=== PATIENT | male | born 1960 | race American Indian/Alaskan Native ===

== ENCOUNTER 2018-11-10 17:09 | Emergency (ER) | payer SELFPAY ==
[2018-11-10] MEDS ORDERED: NACL 0.9% 1000 ML 1,000 ML IV ONE (17:43)
[2018-11-10] MEDS ORDERED: ZOFRAN IV ONE (17:43)
--- NOTE | 2018-11-10 17:49 | Emergency Department Report ---
ED N/V/D HPI - General Chief complaint: Nausea/Vomiting/Diarrhea Stated complaint: NAUSEA/VOMITING Time Seen by Provider: 11/10/18 17:40 Source: patient, EMS Mode of arrival: Stretcher Limitations: No Limitations - History of Present Illness Initial comments: Patient is a 58-year-old male with history of hypertension. Patient brought to the emergency room complaining of nausea and vomiting started this morning. Patient denied any abdominal pain, chest pain, shortness of breath, fever, chills or diarrhea. Patient stated that he ate taco for dinner last night. MD complaint: nausea, vomiting -: This morning Description of Vomiting: food contents Associated Abdominal Pain: No - Related Data Previous Rx's Medication Instructions Recorded Last Taken Type Amoxicillin [Amoxicillin TAB] 875 mg PO BID #14 tablet 11/26/13 Unknown Rx Sulfamethoxazole/Trimethoprim 1 each PO BID #14 tablet 11/26/13 Unknown Rx [Bactrim Ds] HYDROcodone/APAP 10-325 [[place] 1 each PO Q4-6H PRN #16 tablet 06/02/15 Unknown Rx 10/325] predniSONE [Deltasone] 20 mg PO TID #9 tab 06/02/15 Unknown Rx Acetaminophen/Codeine [Tylenol #3] 1 tab PO Q6H PRN #20 tab 08/06/15 Unknown Rx Clindamycin [Clindamycin CAP] 300 mg PO QID #40 cap 08/06/15 Unknown Rx Lisinopril/Hydrochlorothiazide 1 tab PO QDAY #30 tab 08/06/15 Unknown Rx [Zestoretic 20-25 mg] Ibuprofen [Motrin 600 MG tab] 600 mg PO Q8H PRN #30 tablet 08/27/16 Unknown Rx Penicillin Vk [Veetids TAB] 500 mg PO QID #56 tablet 08/27/16 Unknown Rx amLODIPine [Norvasc] 5 mg PO DAILY #30 tab 08/27/16 Unknown Rx Allergies Allergy/AdvReac Type Severity Reaction Status Date / Time No Known Allergies Allergy Verified 11/11/13 04:15 ED Review of Systems ROS: Stated complaint: NAUSEA/VOMITING Other details as noted in HPI Comment: All other systems reviewed and negative Constitutional: denies: chills, fever Respiratory: denies: cough, orthopnea, shortness of breath, SOB with exertion Cardiovascular: denies: chest pain, palpitations, dyspnea on exertion Gastrointestinal: nausea, vomiting. denies: abdominal pain, diarrhea, constipation, hematemesis, melena, hematochezia Neurological: denies: headache, weakness, numbness, paresthesias, confusion, abnormal gait ED Past Medical Hx - Past Medical History Hx Hypertension: Yes (on blood pressure medication many years ago) Additional medical history: ETOH abuse - Social History Smoking Status: Current Every Day Smoker Substance Use Type: Alcohol - Medications Home Medications: Home Medications Medication Instructions Recorded Confirmed Last Taken Type Amoxicillin [Amoxicillin TAB] 875 mg PO BID #14 tablet 11/26/13 Unknown Rx Sulfamethoxazole/Trimethoprim 1 each PO BID #14 tablet 11/26/13 Unknown Rx [Bactrim Ds] HYDROcodone/APAP 10-325 [[place] 1 each PO Q4-6H PRN #16 tablet 06/02/15 Unknown Rx 10/325] predniSONE [Deltasone] 20 mg PO TID #9 tab 06/02/15 Unknown Rx Acetaminophen/Codeine [Tylenol #3] 1 tab PO Q6H PRN #20 tab 08/06/15 Unknown Rx Clindamycin [Clindamycin CAP] 300 mg PO QID #40 cap 08/06/15 Unknown Rx Lisinopril/Hydrochlorothiazide 1 tab PO QDAY #30 tab 08/06/15 Unknown Rx [Zestoretic 20-25 mg] Ibuprofen [Motrin 600 MG tab] 600 mg PO Q8H PRN #30 tablet 08/27/16 Unknown Rx Penicillin Vk [Veetids TAB] 500 mg PO QID #56 tablet 08/27/16 Unknown Rx amLODIPine [Norvasc] 5 mg PO DAILY #30 tab 08/27/16 Unknown Rx ED Physical Exam - General Limitations: No Limitations General appearance: alert, in no apparent distress - Head Head exam: Present: atraumatic, normocephalic, normal inspection - Eye Eye exam: Present: normal appearance, PERRL - ENT ENT exam: Present: normal exam, normal orophraynx, mucous membranes moist - Neck Neck exam: Present: normal inspection, full ROM. Absent: tenderness, meningismus, lymphadenopathy, thyromegaly - Respiratory Respiratory exam: Present: normal lung sounds bilaterally - Cardiovascular Cardiovascular Exam: Present: regular rate, normal rhythm, normal heart sounds - GI/Abdominal GI/Abdominal exam: Present: soft, normal bowel sounds. Absent: distended, tenderness, guarding, rebound, rigid, organomegaly, mass, bruit, pulsatile mass, hernia - Extremities Exam Extremities exam: Present: normal inspection, full ROM, normal capillary refill. Absent: pedal edema, calf tenderness - Back Exam Back exam: Present: normal inspection, full ROM. Absent: tenderness, CVA tenderness (R), CVA tenderness (L), muscle spasm, paraspinal tenderness, vertebral tenderness - Neurological Exam Neurological exam: Present: alert, oriented X3, CN II-XII intact, normal gait, reflexes normal. Absent: motor sensory deficit - Skin Skin exam: Present: warm, intact, normal color ED Course Vital Signs 11/10/18 11/10/18 11/10/18 17:28 17:30 17:45 Pulse Rate 79 84 80 Respiratory 18 15 Rate Blood Pressure 121/84 125/79 O2 Sat by Pulse Oximetry 11/10/18 11/10/18 11/10/18 18:00 18:15 18:30 Pulse Rate 79 76 75 Respiratory 13 13 17 Rate Blood Pressure 125/79 131/81 131/81 O2 Sat by Pulse Oximetry 11/10/18 11/10/18 11/10/18 18:45 19:59 20:00 Pulse Rate 74 78 83 Respiratory 14 10 L 12 Rate Blood Pressure 136/81 136/81 136/81 O2 Sat by Pulse 95 96 94 Oximetry ED Medical Decision Making - Lab Data Result diagrams: 11/10/18 17:50 11/10/18 17:50 - Radiology Data Radiology results: report reviewed Abdominal series x-ray is unremarkable. - Medical Decision Making Patient is a 58-year-old male with history of hypertension. Patient brought to the emergency room complaining of nausea and vomiting started this morning. Patient denied any abdominal pain, chest pain, shortness of breath, fever, chills or diarrhea. Patient stated that he ate taco for dinner last night Patient stated that he is feeling much better. Labs reviewed that is unremarkable. I advised the patient to follow up with his primary care physician in the next 2-3 days and to return to the ER if symptoms are not improved. Critical care attestation.: If time is entered above; I have spent that time in minutes in the direct care of this critically ill patient, excluding procedure time. ED Disposition Clinical Impression: Nausea and vomiting Disposition: DC-01 TO HOME OR SELFCARE Is pt being admited?: No Condition: Stable Instructions: Acute Nausea and Vomiting (ED) Referrals: PRIMARY CARE, [Primary Care Provider] - 3-5 Days
[2018-11-10 18:14] LABS: Basophils # (Auto) 0.1 K/mm3 (0.0-0.1); Basophils % (Auto) 0.8 % (0.0-1.8); Hematocrit 35.5 % (35.5-45.6); Hemoglobin 11.9 gm/dl (11.8-15.2); Lymphocytes # (Auto) 0.5 K/mm3 (1.2-5.4); Lymphocytes % (Auto) 6.2 % (13.4-35.0); Mean Corpuscular HGB Conc 34 % (32-34); Mean Corpuscular Volume 100 fl (84-94); Monocytes # (Auto) 0.4 K/mm3 (0.0-0.8); Monocytes % (Auto) 4.1 % (0.0-7.3); Platelet Count 204 K/mm3 (140-440); Red Blood Count 3.56 M/mm3 (3.65-5.03); Red Cell Distribution Width 15.4 % (13.2-15.2)
[2018-11-10 18:34] LABS: BUN/Creatinine Ratio 11; Bilirubin,Direct 0.4 mg/dL (0-0.2); Blood Urea Nitrogen 8 mg/dL (9-20); Calcium 8.7 mg/dL (8.4-10.2)
[2018-11-10 18:35] LABS: Alanine Aminotransferase 38 units/L (7-56); Albumin 4.2 g/dL (3.9-5); Hemolysis Index 1
[2018-11-10] MEDS ORDERED: SUBLIMAZE IV ONE (19:06)
[2018-11-10] MEDS ORDERED: SUBLIMAZE ONE (19:14)
[2018-11-10 19:51] LABS: Bilirubin,Urine NEG (Negative); Blood,Urine SM (Negative); Color,Urine Yellow (Yellow); Hyaline Casts,Urine 1 /LPF; Mucus,Urine FEW /HPF; Urobilinogen,Urine < 2.0 mg/dL (<2.0); WBC,Urine < 1.0 /HPF (0.0-6.0)
[2018-11-10 20:07] VITALS: BP 136/81
--- NOTE | 2018-11-10 21:51 | XRay Report ---
PROCEDURE: XR ABD SERIES W CXR 1V TECHNIQUE: Abdominal series complete, including supine and upright AP views of the abdomen and front al chest. HISTORY: abdominal pain COMPARISONS: None . FINDINGS: Heart: Normal. Mediastinum/Vessels: Normal. Lungs/Pleural space: Normal. Bowel gas pattern: Nonobstructive . Masses or calcifications: None . Bony structures: No acute osseous abnormality . Other: No free intraperitoneal air . IMPRESSION: No acute abnormality. This document is electronically signed by Obed Randolph MD., Nov 10 2018 09:49:36 PM ET
== END 2018-11-10 21:38 | disposition home or self-care (01) ==
LOC: ED 17:09
DX: R11.2 Nausea with vomiting, unspecified (principal); I10 Essential (primary) hypertension; F17.200 Nicotine dependence, unspecified, uncomplicated
CPT/HCPCS: 36415; 74022; 80048; 80076; 81001; 83690; 84484; 85025; 93005; 93010; 96361; 96374; 99284; G0480; J2405; J3010; J7030; 80320

== ENCOUNTER 2018-11-16 06:35 | Emergency (ER) | payer OTHER ==
[2018-11-16 06:45] VITALS: BP 157/103
--- NOTE | 2018-11-16 08:43 | Emergency Department Report ---
ED Lower Extremity HPI - General Chief Complaint: Extremity Problem,Nontraumatic Stated Complaint: POSS BUG BITE TO L FOOT/PAIN Time Seen by Provider: 11/16/18 08:26 Source: patient Mode of arrival: Ambulatory Limitations: No Limitations - History of Present Illness Initial Comments: 58-year-old male with a past medical history of hypertension and alcohol abuse presents to hospital complains of intermittent left second toe pain the past 2 days. Patient states he is having intermittent pain and "jumping" of his second toe and occasionally his second and third toe of his left foot. He assumed he was bitten by an insect but denies bite wound. He also denies trauma or fall. No fever or drainage reported. - Related Data Previous Rx's Medication Instructions Recorded Last Taken Type Amoxicillin [Amoxicillin TAB] 875 mg PO BID #14 tablet 11/26/13 Unknown Rx Sulfamethoxazole/Trimethoprim 1 each PO BID #14 tablet 11/26/13 Unknown Rx [Bactrim Ds] HYDROcodone/APAP 10-325 [[place] 1 each PO Q4-6H PRN #16 tablet 06/02/15 Unknown Rx 10/325] predniSONE [Deltasone] 20 mg PO TID #9 tab 06/02/15 Unknown Rx Acetaminophen/Codeine [Tylenol #3] 1 tab PO Q6H PRN #20 tab 08/06/15 Unknown Rx Clindamycin [Clindamycin CAP] 300 mg PO QID #40 cap 08/06/15 Unknown Rx Lisinopril/Hydrochlorothiazide 1 tab PO QDAY #30 tab 08/06/15 Unknown Rx [Zestoretic 20-25 mg] Ibuprofen [Motrin 600 MG tab] 600 mg PO Q8H PRN #30 tablet 08/27/16 Unknown Rx Penicillin Vk [Veetids TAB] 500 mg PO QID #56 tablet 08/27/16 Unknown Rx amLODIPine [Norvasc] 5 mg PO DAILY #30 tab 08/27/16 Unknown Rx Esomeprazole Magnesium [NexIUM] 40 mg PO QDAY #30 nicole. 11/10/18 Unknown Rx Ondansetron [Zofran Odt] 4 mg PO Q8HR PRN #14 tab.rapdis 11/10/18 Unknown Rx Ibuprofen [Motrin] 800 mg PO Q8HR PRN #30 tablet 11/16/18 Unknown Rx Allergies Allergy/AdvReac Type Severity Reaction Status Date / Time No Known Allergies Allergy Verified 11/11/13 04:15 ED Review of Systems ROS: Stated complaint: POSS BUG BITE TO L FOOT/PAIN Other details as noted in HPI Comment: All other systems reviewed and negative ED Past Medical Hx - Past Medical History Previous Medical History?: Yes Hx Hypertension: Yes (on blood pressure medication many years ago) Additional medical history: ETOH abuse - Surgical History Past Surgical History?: No - Social History Smoking Status: Unknown if ever smoked Substance Use Type: Alcohol - Medications Home Medications: Home Medications Medication Instructions Recorded Confirmed Last Taken Type Amoxicillin [Amoxicillin TAB] 875 mg PO BID #14 tablet 11/26/13 Unknown Rx Sulfamethoxazole/Trimethoprim 1 each PO BID #14 tablet 11/26/13 Unknown Rx [Bactrim Ds] HYDROcodone/APAP 10-325 [[place] 1 each PO Q4-6H PRN #16 tablet 06/02/15 Unknown Rx 10/325] predniSONE [Deltasone] 20 mg PO TID #9 tab 06/02/15 Unknown Rx Acetaminophen/Codeine [Tylenol #3] 1 tab PO Q6H PRN #20 tab 08/06/15 Unknown Rx Clindamycin [Clindamycin CAP] 300 mg PO QID #40 cap 08/06/15 Unknown Rx Lisinopril/Hydrochlorothiazide 1 tab PO QDAY #30 tab 08/06/15 Unknown Rx [Zestoretic 20-25 mg] Ibuprofen [Motrin 600 MG tab] 600 mg PO Q8H PRN #30 tablet 08/27/16 Unknown Rx Penicillin Vk [Veetids TAB] 500 mg PO QID #56 tablet 08/27/16 Unknown Rx amLODIPine [Norvasc] 5 mg PO DAILY #30 tab 08/27/16 Unknown Rx Esomeprazole Magnesium [NexIUM] 40 mg PO QDAY #30 capsule.dr 11/10/18 Unknown Rx Ondansetron [Zofran Odt] 4 mg PO Q8HR PRN #14 tab.rapdis 11/10/18 Unknown Rx Ibuprofen [Motrin] 800 mg PO Q8HR PRN #30 tablet 11/16/18 Unknown Rx ED Physical Exam - General Limitations: No Limitations - Other Other exam information: General: No limitations, patient is alert in no acute distress Head exam: Atraumatic, normocephalic Eyes exam: Normal appearance ENT: Moist mucous membrane, normal oropharynx Neck exam: Normal inspection Respiratory exam: Clear to auscultation bilateral, no wheezes, rales, crackles Cardiovascular: Normal rate and rhythm, normal heart sounds Abdomen: Soft, nondistended, and nontender, with normal bowel sounds, no rebound, or guarding Extremity: Full range of motion normal inspection no deformity. Minimum tenderness to the medial side of the left second toe nailbed. No swelling, warmth, erythema, bite lynch. No muscle spasms noted at this time Back: Normal Inspection, full range of motion, no tenderness Neurologic: Alert, oriented x3, cranial nerves intact, no motor or sensory deficit Psychiatric: normal affect, normal mood Skin: Warm, dry, intact ED Course Vital Signs 11/16/18 06:43 Temperature 98.1 F Pulse Rate 78 Respiratory 18 Rate Blood Pressure 157/103 O2 Sat by Pulse 100 Oximetry ED Lower Extremity MDM - Medical Decision Making No acute injury or abnormality noted to the toe Since patient does have some mild pain at the nailbed referred to podiatry for possible early ingrown toenail Follow-up advised - Differential Diagnosis cellulitis, paronychia, contusion, sprain, spasm, paronychia, ingrown toena Critical Care Time: No Critical care attestation.: If time is entered above; I have spent that time in minutes in the direct care of this critically ill patient, excluding procedure time. ED Disposition Clinical Impression: Toe pain, left Disposition: DC-01 TO HOME OR SELFCARE Is pt being admited?: No Does the pt Need Aspirin: No Condition: Stable Instructions: Arthralgia (ED) Additional Instructions: Take the medication as prescribed. Follow up with your doctor or the clinic/doctor provided. Return if symptoms worsen as indicated by your discharge instructions Prescriptions: Ibuprofen [Motrin] 800 mg PO Q8HR PRN #30 tablet PRN Reason: Pain , Severe (7-10) Referrals: HARI HUDDLESTON DPM [Staff Physician] - 3-5 Days [facility] [Provider Group] - 3-5 Days Time of Disposition: 08:43
== END 2018-11-16 09:13 | disposition home or self-care (01) ==
LOC: ED 06:35
DX: M79.675 Pain in left toe(s) (principal); I10 Essential (primary) hypertension
CPT/HCPCS: 99282

== ENCOUNTER 2019-10-13 13:28 | Emergency (ER) | payer SELFPAY ==
[2019-10-13] MEDS ORDERED: SODIUM CHLORIDE 0.9% 1000 ML 1,000 ML IV ONE (14:35)
[2019-10-13] MEDS ORDERED: PANTOPRAZOLE 40 MG INJ IV ONE (14:36)
[2019-10-13] MEDS ORDERED: ONDANSETRON 4 MG/2 ML INJ IV ONE (14:36)
--- NOTE | 2019-10-13 14:43 | Emergency Department Report ---
ED GI Bleed HPI - General Chief complaint: GI Bleed Stated complaint: BLACK STOOL/THROAT PAIN/NAUSEA Time Seen by Provider: 10/13/19 14:25 Source: patient Mode of arrival: Ambulatory Limitations: No Limitations - History of Present Illness Initial comments: Mr. Martinez is a 59-year-old male with history of hypertension and alcohol use who presents with poor appetite stomach upset dark stools and vomiting for 3 days. He had black stools recently. Now he has bright red blood per rectum. Has not had a bowel movement in 3 days. Denies discrete pain. Just does not have an appetite. He drinks 40 ounces of beer every other day. No history of GI bleed or liver disease MD complaint: blood on toilet paper, other (Dark stool) -: Gradual, days(s) (3) Severity scale (0 -10): 0 Quality: painless Consistency: constant Improves with: none Worsens with: none Associated Symptoms: denies other symptoms - Related Data Previous Rx's Medication Instructions Recorded Last Taken Type Amoxicillin [Amoxicillin TAB] 875 mg PO BID #14 tablet 11/26/13 Unknown Rx Sulfamethoxazole/Trimethoprim 1 each PO BID #14 tablet 11/26/13 Unknown Rx [Bactrim Ds] HYDROcodone/APAP 10-325 [[place] 1 each PO Q4-6H PRN #16 tablet 06/02/15 Unknown Rx 10/325] predniSONE [Deltasone] 20 mg PO TID #9 tab 06/02/15 Unknown Rx Acetaminophen/Codeine [Tylenol #3] 1 tab PO Q6H PRN #20 tab 08/06/15 Unknown Rx Clindamycin [Clindamycin CAP] 300 mg PO QID #40 cap 08/06/15 Unknown Rx Lisinopril/Hydrochlorothiazide 1 tab PO QDAY #30 tab 08/06/15 Unknown Rx [Zestoretic 20-25 mg] Ibuprofen [Motrin 600 MG tab] 600 mg PO Q8H PRN #30 tablet 08/27/16 Unknown Rx Penicillin Vk [Veetids TAB] 500 mg PO QID #56 tablet 08/27/16 Unknown Rx amLODIPine 5 mg PO DAILY #30 tab 08/27/16 Unknown Rx Esomeprazole Magnesium [NexIUM] 40 mg PO QDAY #30 nicole. 11/10/18 Unknown Rx Ondansetron [Zofran Odt] 4 mg PO Q8HR PRN #14 tab.rapdis 11/10/18 Unknown Rx Ibuprofen [Motrin] 800 mg PO Q8HR PRN #30 tablet 11/16/18 Unknown Rx Ciprofloxacin HCl [Ciprofloxacin 500 mg PO Q12HR 7 Days #14 tab 10/13/19 Unknown Rx TAB] Famotidine [Pepcid] 20 mg PO BID 30 Days #60 tablet 10/13/19 Unknown Rx Promethazine [Phenergan] 25 mg PO Q6HR PRN #10 tab 10/13/19 Unknown Rx metroNIDAZOLE [Flagyl] 500 mg PO Q12HR 7 Days #14 tab 10/13/19 Unknown Rx Allergies Allergy/AdvReac Type Severity Reaction Status Date / Time No Known Allergies Allergy Verified 11/11/13 04:15 ED Review of Systems ROS: Stated complaint: BLACK STOOL/THROAT PAIN/NAUSEA Other details as noted in HPI Comment: All other systems reviewed and negative Constitutional: denies: fever, malaise Respiratory: denies: cough Cardiovascular: denies: chest pain Gastrointestinal: hematochezia. denies: hematemesis ED Past Medical Hx - Past Medical History Previous Medical History?: Yes Hx Hypertension: Yes (on blood pressure medication many years ago) Additional medical history: ETOH abuse - Social History Smoking Status: Current Every Day Smoker Substance Use Type: Alcohol, Marijuana - Medications Home Medications: Home Medications Medication Instructions Recorded Confirmed Last Taken Type Amoxicillin [Amoxicillin TAB] 875 mg PO BID #14 tablet 11/26/13 Unknown Rx Sulfamethoxazole/Trimethoprim 1 each PO BID #14 tablet 11/26/13 Unknown Rx [Bactrim Ds] HYDROcodone/APAP 10-325 [[place] 1 each PO Q4-6H PRN #16 tablet 06/02/15 Unknown Rx 10/325] predniSONE [Deltasone] 20 mg PO TID #9 tab 06/02/15 Unknown Rx Acetaminophen/Codeine [Tylenol #3] 1 tab PO Q6H PRN #20 tab 08/06/15 Unknown Rx Clindamycin [Clindamycin CAP] 300 mg PO QID #40 cap 08/06/15 Unknown Rx Lisinopril/Hydrochlorothiazide 1 tab PO QDAY #30 tab 08/06/15 Unknown Rx [Zestoretic 20-25 mg] Ibuprofen [Motrin 600 MG tab] 600 mg PO Q8H PRN #30 tablet 08/27/16 Unknown Rx Penicillin Vk [Veetids TAB] 500 mg PO QID #56 tablet 08/27/16 Unknown Rx amLODIPine 5 mg PO DAILY #30 tab 08/27/16 Unknown Rx Esomeprazole Magnesium [NexIUM] 40 mg PO QDAY #30 capsule. 11/10/18 Unknown Rx Ondansetron [Zofran Odt] 4 mg PO Q8HR PRN #14 tab.rapdis 11/10/18 Unknown Rx Ibuprofen [Motrin] 800 mg PO Q8HR PRN #30 tablet 11/16/18 Unknown Rx Ciprofloxacin HCl [Ciprofloxacin 500 mg PO Q12HR 7 Days #14 tab 10/13/19 Unknown Rx TAB] Famotidine [Pepcid] 20 mg PO BID 30 Days #60 tablet 10/13/19 Unknown Rx Promethazine [Phenergan] 25 mg PO Q6HR PRN #10 tab 10/13/19 Unknown Rx metroNIDAZOLE [Flagyl] 500 mg PO Q12HR 7 Days #14 tab 10/13/19 Unknown Rx ED Physical Exam - General Limitations: No Limitations General appearance: alert, in no apparent distress, other (Lucid and insightful aware odor of alcohol on breath) - Head Head exam: Present: atraumatic, normocephalic - Eye Eye exam: Present: normal appearance - ENT ENT exam: Present: mucous membranes moist - Neck Neck exam: Present: normal inspection, full ROM - Respiratory Respiratory exam: Present: normal lung sounds bilaterally. Absent: respiratory distress, wheezes, rales, rhonchi - Cardiovascular Cardiovascular Exam: Present: regular rate, normal rhythm, normal heart sounds. Absent: systolic murmur, diastolic murmur, rubs, gallop - GI/Abdominal GI/Abdominal exam: Present: soft. Absent: distended, tenderness, guarding, rebound - Rectal Rectal exam: Present: heme (+) stool, hemorrhoids, other (Gross blood on rectal exam) - Extremities Exam Extremities exam: Present: normal inspection - Neurological Exam Neurological exam: Present: alert, oriented X3 - Psychiatric Psychiatric exam: Present: normal affect, normal mood - Skin Skin exam: Present: warm, dry, intact, normal color. Absent: rash ED Course Vital Signs 10/13/19 13:47 Temperature 98.3 F Pulse Rate 92 H Respiratory 14 Rate Blood Pressure 175/94 [Right] O2 Sat by Pulse 99 Oximetry ED Medical Decision Making - Lab Data Result diagrams: 10/13/19 14:49 Laboratory Results - last 24 hr 10/13/19 10/13/19 10/13/19 14:49 14:49 14:49 WBC 7.1 RBC 3.74 Hgb 11.7 L Hct 34.7 L MCV 93 MCH 31 MCHC 34 RDW 16.6 H Plt Count 233 Lymph % (Auto) 12.2 L [place] % (Auto) 7.5 H Eos % (Auto) 0.1 Baso % (Auto) 1.1 Lymph # 0.9 L [place] # 0.5 Eos # 0.0 Baso # 0.1 Seg Neutrophils % 79.1 H Seg Neutrophils # 5.6 PT 13.8 INR 1.05 Total Bilirubin 0.80 Direct Bilirubin < 0.2 Indirect Bilirubin 0.6 AST 94 H ALT 33 Alkaline Phosphatase 174 H Total Protein 8.6 H Albumin 4.7 Albumin/Globulin Ratio 1.2 Lipase 10/13/19 14:49 WBC RBC Hgb Hct MCV MCH MCHC RDW Plt Count Lymph % (Auto) [place] % (Auto) Eos % (Auto) Baso % (Auto) Lymph # [place] # Eos # Baso # Seg Neutrophils % Seg Neutrophils # PT INR Total Bilirubin Direct Bilirubin Indirect Bilirubin AST ALT Alkaline Phosphatase Total Protein Albumin Albumin/Globulin Ratio Lipase 16 - Radiology Data Radiology results: report reviewed CT abdomen pelvis: Enlarged prostate that indents the bladder base, hepatic steatosis, diverticulosis with diffuse fatty infiltration - Medical Decision Making 1. GI bleed: Suspect rectal bleeding. Gross blood on exam. Hemoglobin hematocrit unchanged since October 2018, considering diverticulosis finding did prescribe antibiotics ciprofloxacin and Flagyl 2. Poor appetite vomiting: Peptic ulcer disease versus alcoholic gastritis CT abdomen pelvis obtained to rule out acute inflammatory process such as pancreatitis prescribed famotidine and promethazine 3. Enlarged prostate seen on CT scan and palpated on rectal exam strongly encourage prostate cancer screening Patient understands to return if symptoms progress such as continued bleeding lightheadedness dizziness Referred to outpatient medicine physician Critical care attestation.: If time is entered above; I have spent that time in minutes in the direct care of this critically ill patient, excluding procedure time. ED Disposition Clinical Impression: Rectal bleeding, Alcoholic liver disease, Diverticulosis Disposition: - TO HOME OR SELFCARE Is pt being admited?: No Does the pt Need Aspirin: No Condition: Stable Instructions: Rectal Bleeding (ED), Diverticulosis (ED), Cirrhosis (ED) Prescriptions: Ciprofloxacin HCl [Ciprofloxacin TAB] 500 mg PO Q12HR 7 Days #14 tab metroNIDAZOLE [Flagyl] 500 mg PO Q12HR 7 Days #14 tab Famotidine [Pepcid] 20 mg PO BID 30 Days #60 tablet Promethazine [Phenergan] 25 mg PO Q6HR PRN #10 tab PRN Reason: Nausea Referrals: CHLOÉ SHAW MD [Staff Physician] - 3-5 Days
[2019-10-13 15:02] LABS: Basophils # (Auto) 0.1 K/mm3 (0.0-0.1); Basophils % (Auto) 1.1 % (0.0-1.8); Eosinophils % (Auto) 0.1 % (0.0-4.3); Hematocrit 34.7 % (35.5-45.6); Hemoglobin 11.7 gm/dl (11.8-15.2); Lymphocytes # (Auto) 0.9 K/mm3 (1.2-5.4); Lymphocytes % (Auto) 12.2 % (13.4-35.0); Mean Corpuscular HGB Conc 34 % (32-34); Mean Corpuscular Volume 93 fl (84-94); Monocytes # (Auto) 0.5 K/mm3 (0.0-0.8); Monocytes % (Auto) 7.5 % (0.0-7.3); Platelet Count 233 K/mm3 (140-440); Red Blood Count 3.74 M/mm3 (3.65-5.03); Red Cell Distribution Width 16.6 % (13.2-15.2)
[2019-10-13 15:14] LABS: INR 1.05 (0.87-1.13)
[2019-10-13 15:25] LABS: Alanine Aminotransferase 33 units/L (7-56); Albumin 4.7 g/dL (3.9-5)
--- NOTE | 2019-10-13 15:26 | Cat Scan Report ---
CT ABDOMEN AND PELVIS WITHOUT CONTRAST HISTORY: poor appetite dark stools. COMPARISON: None. TECHNIQUE: CT images of the abdomen and pelvis were obtained without administration of intravenous co ntrast. All CT scans at this location are performed using CT dose reduction for ALARA by means of au tomated exposure control. FINDINGS: Lungs/bones: Lung bases are clear. There are degenerative changes within the spine and pelvis with n o acute osseous abnormality. Bilateral L5 pars defects are present without listhesis. Abdomen/pelvis: There is moderate hepatic steatosis. The gallbladder, spleen, pancreas, adrenals, le ft kidney, and proximal GI tract appear normal. There is a simple cyst in the right kidney. Prostate is enlarged and indents the bladder base. Bladder itself is otherwise partially contracted a nd unremarkable. No pelvic free fluid identified. There is colonic diverticulosis with mild diffuse f atty infiltration of the colonic wall which can be seen with chronic inflammatory bowel disease. Ther e is no acute inflammatory change, obstruction, or abscess. IMPRESSION: 1. No acute abnormality identified. 2. Incidental findings as above. Signer Name: Ivan Perez MD Signed: 10/13/2019 3:22 PM Workstation Name: [id number]
[2019-10-13 15:36] LABS: Bilirubin,Direct < 0.2 mg/dL (0-0.2)
[2019-10-13 15:43] VITALS: BP 116/90
[2019-10-13 15:49] LABS: BUN/Creatinine Ratio 8; Blood Urea Nitrogen 8 mg/dL (9-20); Calcium 9.7 mg/dL (8.4-10.2); Hemolysis Index 8
== END 2019-10-13 16:37 | disposition home or self-care (01) ==
LOC: ED 13:28
DX: K62.5 Hemorrhage of anus and rectum (principal); K57.90 Diverticulosis of intestine, part unspecified, without perforation or abscess without bleeding; R11.10 Vomiting, unspecified; K70.9 Alcoholic liver disease, unspecified; I10 Essential (primary) hypertension; F17.200 Nicotine dependence, unspecified, uncomplicated; F12.10 Cannabis abuse, uncomplicated; Z79.1 Long term (current) use of non-steroidal anti-inflammatories (NSAID); Z79.2 Long term (current) use of antibiotics; Z79.899 Other long term (current) drug therapy
CPT/HCPCS: 36415; 74176; 80048; 80076; 83690; 85025; 85610; 96361; 96374; 96375; 99284; C9113; J2405; J7030